=== PATIENT | male | born 1975 | race Caucasian/White ===

== ENCOUNTER 2020-03-17 11:59 | Inpatient (IN) | payer MEDICAID ==
[~2020-03-17] VITALS: Ht 177.8 cm; Wt 78.0 kg
[2020-03-17] MEDS ORDERED: PRINIVIL20 MG (12:21)
[2020-03-17] MEDS ORDERED: ZOLOFT50 MG PO (12:22)
[2020-03-17] MEDS ORDERED: BUPROPION XL300 MG PO (12:22)
[2020-03-17] MEDS ORDERED: BUSPAR10 MG (12:22)
--- NOTE | 2020-03-17 12:32 | NUR ---
CALLED POISON CONTROL- MONITOR FOR GI UPSET AND CHECK ALCOHOL LEVEL
[2020-03-17 13:25] LABS: HEMATOCRIT 43.3 % (42.0-54.0); HEMOGLOBIN 14.4 g/dL (13.5-17.5); MCH 31.4 pg (26.0-34.0); MCHC 33.3 g/dL (31.0-37.0); MCV 94.5 fL (80.0-100.0); MEAN PLATELET VOLUME 8.9 fL (7.4-10.4); PLATELET COUNT 331 10x3/uL (130-400); RBC 4.58 10x6/uL (4.20-6.10); RDW 13.1 % (11.5-14.5); WBC 10.2 10x3/uL (4.8-10.8)
[2020-03-17 13:37] LABS: CALC OSMOLALITY 269 mosm/kg (275-300); CALCIUM 9.4 mg/dL (8.5-10.1); CARBON DIOXIDE 28.6 mmol/L (21.0-32.0); CHLORIDE - SERUM 102 mmol/L (98-107); GLUCOSE 84 mg/dL (74-106); POTASSIUM - SERUM 4.1 mmol/L (3.5-5.1); SODIUM 136 mmol/L (136-145); UREA NITROGEN 11 mg/dL (7-18); eGFR NON AFRICAN AMERICAN 87 mL/min (90-120)
[2020-03-17 13:38] LABS: UDS - AMPHET NEGATIVE QUAL (NEGATIVE); UDS - BARB NEGATIVE QUAL (NEGATIVE); UDS - BENZO POSITIVE QUAL (NEGATIVE); UDS - COCAINE NEGATIVE QUAL (NEGATIVE); UDS - OPIATE NEGATIVE QUAL (NEGATIVE); UDS - PCP NEGATIVE QUAL (NEGATIVE); UDS - THC NEGATIVE QUAL (NEGATIVE)
[2020-03-17 13:41] LABS: ALBUMIN 4.3 g/dL (3.4-5.0); ALKALINE PHOSPHATASE 77 U/L (30-120); ALT (SGPT) 58 U/L (10-68); BILIRUBIN - TOTAL 0.25 mg/dL (0.2-1.3); MAGNESIUM - SERUM 1.9 mg/dL (1.8-2.4); PROTEIN - SERUM 8.4 g/dL (6.4-8.2)
[2020-03-17 13:43] LABS: BILIRUBIN NEGATIVE (NEGATIVE); KETONE NEGATIVE (NEGATIVE); NITRITE NEGATIVE (NEGATIVE); UROBILINOGEN NORMAL mg/dL (< 2)
[2020-03-17 14:28] LABS: ANISOCYTOSIS OCC; BASOPHILS 1 % (0-2); EOSINOPHILS 1 % (0-7); LYMPHOCYTES 36 % (15-50); MONOCYTES 11 % (2-11); NEUTROPHILS 48 % (40-80); PLATELET ESTIMATE NORMAL
--- NOTE | 2020-03-17 18:00 | NUR ---
TO PT ROOM, DOOR CLOSED UPON OPENING PT STANDING IN FRONT OF CRASH CART AND JUMPED BACK QUICKLY WITH HANDS BEHIND HIS BACK. WHEN I ASKED PT WHAT HE WAS DOING AND WHAT HE HID BEHIND HIS BACK HE REPLIED "YOU CAUGHT ME" PT HAD 2 BOXES OF EPINEPHRINE. TOOK BOXES FROM PT AND HE REPLIED "I HAD ALL MY POCKETS FULL AND I PUT THEM BACK" MOVED PT TO SECURED ROOMWITH DIRECT/CONTINUOUS OBS. PT BECAME VERY ANXIOUS AND AGGRESSIVE. PULLING ON GARAGE DOOR, PICKING UP THE CHAIR AND THROWING IT SECURITY CALLED AND STAFF AT BS. NEW ORDER FOR MED RCVD AND ADMIN
[2020-03-17 20:00] VITALS: BP 101/73
--- NOTE | 2020-03-17 20:00 | NUR ---
RESTING SUPINE WITH SNORING RESP. AROUSES EASILY AND STATES "I'M DOING FINE. I WAS SLEEPING GOOD" SKIN W/D/P. VSS
--- NOTE | 2020-03-17 21:06 | NUR ---
BS REPORT TO JAIDEN DUMAS
--- NOTE | 2020-03-17 23:29 | NUR ---
PT RESTING IN RECLINER, RESPIRATIONS APPEAR EVEN AND NON LABORED. WILL CONTINUE TO MONITOR.
[2020-03-18 03:40] VITALS: BP 116/74
--- NOTE | 2020-03-18 03:40 | NUR ---
RESTING WITH EYES CLOSED, SUPINE POSITION IN BED. NO SIGNS DISTRESS NOTED. VSS. WILL CONTINUE TO MONITOR.
--- NOTE | 2020-03-18 05:38 | NUR ---
CALLED FOR PSYCH SCREENER AT THIS TIME.
--- NOTE | 2020-03-18 06:10 | NUR ---
SPOKE WITH [facility] AND FAXED PT'S CHART.
--- NOTE | 2020-03-18 06:17 | NUR ---
SPOKE WITH NAVARRO AT [facility] AND FAXED PT'S CHART.
--- NOTE | 2020-03-18 06:38 | NUR ---
DR SPANN NOTIFIED AND REVIEWED PT's BEHAVIOR AND ASSESSMENT RESULTS. PT ISS A LOW RISK PER DR SPANN. DR SPANN STATED TO GIVE RESOURCES TO PT AT TIME OF DISCHARGE. NO FURTHER ORDERS AT THIS TIME. RESOURCES REVIEWED WITH PATIENT AND HE VERBALIZED UNDERSTANDING.
--- NOTE | 2020-03-18 06:42 | NUR ---
ICE WATER PROVIDED AT THIS TIME.
--- NOTE | 2020-03-18 07:20 | NUR ---
ASSUMED CARE OF PT. RESTING IN BED. A/A/OX4, DENIES C/O. SKIN W/D/P. RESP EVEN/UNLABORED. NAD NOTED .VSS
--- NOTE | 2020-03-18 07:21 | NUR ---
REPORT TO JAIDEN MCNAIR
[2020-03-18 07:30] VITALS: BP 110/76
--- NOTE | 2020-03-18 08:25 | NUR ---
NASAL SWAB COLLECTED, LABELED AT BS AND SENT TO LAB
[2020-03-18 09:15] VITALS: BP 118/76
--- NOTE | 2020-03-18 09:15 | NUR ---
RESTING IN BED WITH EYES CLOSED, AROUSES EASILY. NO C/O RTNS TO REST EASILY. VSS
--- NOTE | 2020-03-18 10:55 | NUR ---
CALLED [facility], SPOKE WITH ANDRES, INTAKE NURSE. REPORTS "NO CAPABILITY TO CARE FOR THIS PT"
--- NOTE | 2020-03-18 11:08 | NUR ---
CALLED [facility], SPOKE WITH JAIDEN DE LOS SANTOS. PT INFO GIVEN AND REQUESTED INFO FAXED TO PT
--- NOTE | 2020-03-18 11:31 | NUR ---
MAGALI MAHAJAN [facility] CALLED BACK, UNABLE TO ACCEPT "WE DON'T HAVE BEDS"
--- NOTE | 2020-03-18 11:50 | NUR ---
CALLED [facility] SPOKE WITH MILE, INFO PT INFO GIVEN AND INFO FAXED PER REQUEST
--- NOTE | 2020-03-18 12:36 | NUR ---
RCVD TC FROM LAB= COVID POSITIVE
[2020-03-18 13:00] VITALS: BP 114/72
--- NOTE | 2020-03-18 13:00 | NUR ---
SITTING UP ON SIDE OF BED EATING SANDWICH. CALM/COOP. VSS
--- NOTE | 2020-03-18 17:23 | NUR ---
PER DR. SPANN PT IS IN A SAFE ROOM AND SECURE. PT CAN BE MONITORED BY [facility] DUE TO COVID RESULTS.
--- NOTE | 2020-03-18 18:54 | NUR ---
REPORT TO JAIDEN SILVER
--- NOTE | 2020-03-18 19:00 | NUR ---
PT RESTING EYES CLOSED RESP EVEN AND UNLABORED WILL CONT TO MONITOR
--- NOTE | 2020-03-18 21:30 | NUR ---
PT ALERT ORIENTED CALM AND COOPERATIVE AT THIS TIME. PT USING BATHROOM AT THIS TIME. SITTER AT BEDSIDE.
[2020-03-18 21:50] VITALS: BP 136/88
--- NOTE | 2020-03-19 | NUR ---
PT RESTING EYES CLOSED RESP EVEN AND UNLABORED. WILL CONT TO MONITOR. SITTER AT BEDSIDE.
--- NOTE | 2020-03-19 04:00 | NUR ---
PT RESTING EYES CLOSED RESP EVEN AND UNLABORED. WILL CONT TO MONITOR.
--- NOTE | 2020-03-19 06:00 | NUR ---
PT ALERT AND ORIENTED INFORMED WE WILL BE WAITING ON BREAKFAST. DENIES NEEDS. LABS DRAWN.
[2020-03-19 06:12] VITALS: BP 149/76
[2020-03-19 06:17] LABS: BASOPHILS 0.7 % (0-2); HEMATOCRIT 44.9 % (42.0-54.0); IMMATURE GRANULOCYTES 0.5 % (0-5); LYMPHOCYTES 38.9 % (15-50); MCH 31.3 pg (26.0-34.0); MCHC 33.4 g/dL (31.0-37.0); MCV 93.7 fL (80.0-100.0); MEAN PLATELET VOLUME 8.6 fL (7.4-10.4); MONOCYTES 12.1 % (2-11); NEUTROPHILS 42.8 % (40-80); PLATELET COUNT 284 10x3/uL (130-400); RBC 4.79 10x6/uL (4.20-6.10); RDW 13.1 % (11.5-14.5); WBC 8.3 10x3/uL (4.8-10.8)
[2020-03-19 06:49] LABS: ANION GAP 13.4 mmol/L (8-16); BILIRUBIN - TOTAL 0.55 mg/dL (0.2-1.3); CALCIUM 9.7 mg/dL (8.5-10.1); CARBON DIOXIDE 29.2 mmol/L (21.0-32.0); CREATININE - SERUM 1.2 mg/dL (0.6-1.3); POTASSIUM - SERUM 4.6 mmol/L (3.5-5.1); PROTEIN - SERUM 7.8 g/dL (6.4-8.2)
[2020-03-19 10:00] VITALS: BP 134/73
--- NOTE | 2020-03-19 10:00 | NUR ---
PATIENT RESTING IN ROOM, NO COMPLAINTS OR REQUEST AT THIS TIME.
[2020-03-19 14:00] VITALS: BP 112/73
--- NOTE | 2020-03-19 14:00 | NUR ---
PATIENT RESTING WITH EYES CLOSED, AROUSES TO A/O X 3 WITH VERBAL STIMULAS.
--- NOTE | 2020-03-19 15:38 | CN ---
PATIENT NAME:STALIN FERNANDEZ MEDICAL RECORD: [id number] : 79 [facility] ADMIT DATE: 03/18/20 ACCOUNT: [id number] CONSULTING PHYSICIAN: RUKHSANA SPANN MD REFERRING PHYSICIAN: DOV JOSE MD DATE OF CONSULTATION: 03/18/2020 IDENTIFYING DATA: The patient is 44 years old and he is admitted to the hospital on a voluntary basis. CHIEF COMPLAINT: Overdose. HISTORY OF PRESENT ILLNESS: The patient took a 32 ounce bottle of hand kindergarten aide and drank it. He states that he did not do this for the purpose of getting high or drunk. He did it to kill himself. He currently is a patient at the [facility] and was admitted to that program for drug and alcohol abuse after having a stay at the [facility] because of suicidal ideations. He currently is awake, alert and reporting numerous depressive symptoms. He is estranged from his family. He will have nothing to do with them because of his history of drug and alcohol abuse and he does have a history of trying to hurt himself in the past. His drug history includes alcohol and methamphetamine use. Unfortunately, he was tested for COVID and is positive. He was scheduled to be sent to a psychiatric facility from the Emergency Department, but that cannot happen because of the positive COVID test. ASSESSMENT: Major depression. PLAN: The patient is currently admitted to the medical unit. It is not because of the COVID symptoms, he is actually asymptomatic with that and it was just discovered as a routine test. He is having depressive symptoms and suicidal thoughts and does need inpatient psychiatric care at this time. Unfortunately, no psychiatric inpatient unit can take him because he is COVID positive. At this point, I am going to treat him with antidepressant medicines, keep him with a sitter and we will attempt to relieve his mood symptoms in this manner. TRANSINT:[id number] Voice Confirmation ID: [id number] DOCUMENT ID: [id number] RUKHSANA SPANN MD at 1538 CC: [id number] DICTATION DATE: 03/18/20 1539 STONE POLISHER: 03/18/20 [address] [place] [address]
--- NOTE | 2020-03-19 19:00 | NUR ---
PT UP TO BATHROOM PT DENIES NEEDS AT THIS TIME.
[2020-03-19 19:35] VITALS: BP 136/77
[2020-03-20] VITALS: BP 127/74
--- NOTE | 2020-03-20 | NUR ---
PT RESTING EYES CLOSED RESP EVEN AND UNLABORED.
--- NOTE | 2020-03-20 03:39 | NUR ---
PT LYING ON STRECHER EYES CLOSED RESP EVEN AND UNLABORED. WILL CONT. TO MONITOR
[2020-03-20 06:06] LABS: EOSINOPHILS 4.9 % (0-7); HEMATOCRIT 43.9 % (42.0-54.0); HEMOGLOBIN 14.5 g/dL (13.5-17.5); IMMATURE GRANULOCYTES 0.3 % (0-5); MCH 31.1 pg (26.0-34.0); MCV 94.2 fL (80.0-100.0); MEAN PLATELET VOLUME 8.9 fL (7.4-10.4); MONOCYTES 9.4 % (2-11); NEUTROPHILS 42.4 % (40-80); PLATELET COUNT 278 10x3/uL (130-400); RBC 4.66 10x6/uL (4.20-6.10); RDW 13.1 % (11.5-14.5); WBC 7.4 10x3/uL (4.8-10.8)
[2020-03-20 06:24] LABS: ALBUMIN 3.8 g/dL (3.4-5.0); ALKALINE PHOSPHATASE 78 U/L (30-120); ALT (SGPT) 48 U/L (10-68); BILIRUBIN - TOTAL 0.26 mg/dL (0.2-1.3); CALC OSMOLALITY 277 mosm/kg (275-300); CALCIUM 9.4 mg/dL (8.5-10.1); CARBON DIOXIDE 29.5 mmol/L (21.0-32.0); CHLORIDE - SERUM 103 mmol/L (98-107); CREATININE - SERUM 1.1 mg/dL (0.6-1.3); GLUCOSE 89 mg/dL (74-106); POTASSIUM - SERUM 4.8 mmol/L (3.5-5.1); PROTEIN - SERUM 7.4 g/dL (6.4-8.2); SODIUM 138 mmol/L (136-145); UREA NITROGEN 21 mg/dL (7-18); eGFR NON AFRICAN AMERICAN 78 mL/min (90-120)
[2020-03-20 06:30] VITALS: BP 128/80
--- NOTE | 2020-03-20 07:00 | NUR ---
REPORT RECEIVED FROM PM RN, NO CHANGE IN PATIENT STATUS.
[2020-03-20 10:30] VITALS: BP 132/89
--- NOTE | 2020-03-20 10:30 | NUR ---
NO CHANGES IN PATIENT STATUS
--- NOTE | 2020-03-20 13:38 | NUR ---
PT IS CALM COOPERATIVE. PT IS IN SAFE ROOM. SITTER PRESENT.
[2020-03-20 14:30] VITALS: BP 133/94
--- NOTE | 2020-03-20 14:30 | NUR ---
PATIENT RESTING WITH EYES CLOSED, AROUSES WITH VERBAL STIMULAS
[2020-03-20 18:30] VITALS: BP 117/78
[2020-03-20 19:30] VITALS: BP 135/79
--- NOTE | 2020-03-20 19:30 | NUR ---
REPORT FROM SAUL HWANG PT RESTING EYES CLOSED RESP EVEN AND UNLABORED.
--- NOTE | 2020-03-20 20:30 | NUR ---
PT RESTING EYES CLOSED RESP EVEN AND UNLABORED. WILL CONT TO MONITOR. SITTER AT BEDSIDE.
--- NOTE | 2020-03-20 21:48 | NUR ---
PT UP TO BATHROOM AT THIS TIME DENIES NEEDS. SITTER AT BEDSIDE.
[2020-03-21] VITALS: BP 133/73
--- NOTE | 2020-03-21 | NUR ---
PT RESTING EYES CLOSED RESP EVEN AND UNLABORED. WILL CONTINUE TO MONITOR
--- NOTE | 2020-03-21 02:52 | NUR ---
PT UP TO BATHROOM GIVEN ICE CREAM AND COFFEE. DENIES NEEDS.
--- NOTE | 2020-03-21 03:30 | NUR ---
PT TAKEN TO [facility] ROOM TO SHOWER. SECURITY AT BEDSIDE. PT IS CALM AND COOPERATIVE.
[2020-03-21 03:38] VITALS: BP 142/71
[2020-03-21 04:35] LABS: BASOPHILS 0.9 % (0-2); EOSINOPHILS 5.2 % (0-7); HEMATOCRIT 41.7 % (42.0-54.0); HEMOGLOBIN 13.5 g/dL (13.5-17.5); IMMATURE GRANULOCYTES 0.3 % (0-5); LYMPHOCYTES 43.5 % (15-50); MCH 30.4 pg (26.0-34.0); MCHC 32.4 g/dL (31.0-37.0); MCV 93.9 fL (80.0-100.0); MEAN PLATELET VOLUME 8.9 fL (7.4-10.4); MONOCYTES 7.2 % (2-11); NEUTROPHILS 42.9 % (40-80); PLATELET COUNT 244 10x3/uL (130-400); RBC 4.44 10x6/uL (4.20-6.10); RDW 12.7 % (11.5-14.5); WBC 7.9 10x3/uL (4.8-10.8)
[2020-03-21 04:47] LABS: ALBUMIN 3.5 g/dL (3.4-5.0); ALKALINE PHOSPHATASE 88 U/L (30-120); ALT (SGPT) 42 U/L (10-68); BILIRUBIN - TOTAL 0.14 mg/dL (0.2-1.3); CALC OSMOLALITY 276 mosm/kg (275-300); CARBON DIOXIDE 27.7 mmol/L (21.0-32.0); CHLORIDE - SERUM 102 mmol/L (98-107); CREATININE - SERUM 1.1 mg/dL (0.6-1.3); GLUCOSE 108 mg/dL (74-106); MAGNESIUM - SERUM 1.9 mg/dL (1.8-2.4); PHOSPHOROUS 3.4 mg/dL (2.5-4.9); POTASSIUM - SERUM 4.3 mmol/L (3.5-5.1); PROTEIN - SERUM 7.2 g/dL (6.4-8.2); SODIUM 137 mmol/L (136-145); UREA NITROGEN 17 mg/dL (7-18); eGFR NON AFRICAN AMERICAN 78 mL/min (90-120)
--- NOTE | 2020-03-21 09:20 | NUR ---
[facility] DENIED DUE TO CAPABILITY
[2020-03-21 10:42] VITALS: BP 136/72
--- NOTE | 2020-03-21 10:42 | NUR ---
PT UP IN ROOM, WATCHING TV, STATES HE FEELS GOOD TODAY.
[2020-03-21 13:49] VITALS: Ht 177.8 cm; Wt 78.0 kg
[2020-03-21 14:32] VITALS: BP 136/69
--- NOTE | 2020-03-21 14:40 | NUR ---
[facility] STILL TRYING TO PLACE PT. PT WATCHING TV, VERY CALM NO COMPLAINTS VOICED.
--- NOTE | 2020-03-21 18:07 | NUR ---
PT WATCHING TV, NO COMPLAINTS VOICED. VITAL SIGNS STABLE.
[2020-03-21 18:08] VITALS: BP 146/86
--- NOTE | 2020-03-21 19:45 | NUR ---
PT RESTING WATCHING TV. SITTER WITHIN ARMS REACH.
--- NOTE | 2020-03-21 21:00 | NUR ---
PT GIVEN NIGHT TIME MEDS. CON'T TO DO WELL.
--- NOTE | 2020-03-21 21:21 | NUR ---
SPOKE TO [facility]ER CENTER. STATES HAS BEEN ON THE PHONE WITH PSYCH FACILITIES AND WAS INFORMED PATIENT WOULD NEED A SECOND NEGATIVE COVID SWAB.
--- NOTE | 2020-03-21 21:50 | NUR ---
PT RESTING IN BED.
--- NOTE | 2020-03-22 01:45 | NUR ---
RESTING QUIETLY WITH EYES CLOSED.
--- NOTE | 2020-03-22 05:55 | NUR ---
PT RESTING QUIETLY WITH EYES CLOSED. HAS RESTED WELL THIS SHIFT.
--- NOTE | 2020-03-22 06:27 | NUR ---
COVID SWAB COLLECTED AND SENT TO LAB.
[2020-03-22 07:14] LABS: BASOPHILS 1.5 % (0-2); EOSINOPHILS 5.5 % (0-7); HEMATOCRIT 43.4 % (42.0-54.0); HEMOGLOBIN 14.2 g/dL (13.5-17.5); IMMATURE GRANULOCYTES 0.5 % (0-5); LYMPHOCYTES 43.3 % (15-50); MCH 30.8 pg (26.0-34.0); MCHC 32.7 g/dL (31.0-37.0); MCV 94.1 fL (80.0-100.0); MEAN PLATELET VOLUME 9.1 fL (7.4-10.4); MONOCYTES 8.4 % (2-11); NEUTROPHILS 40.8 % (40-80); PLATELET COUNT 280 10x3/uL (130-400); RBC 4.61 10x6/uL (4.20-6.10); RDW 12.7 % (11.5-14.5); WBC 6.2 10x3/uL (4.8-10.8)
[2020-03-22 07:19] LABS: ALBUMIN 3.9 g/dL (3.4-5.0); ALKALINE PHOSPHATASE 78 U/L (30-120); ALT (SGPT) 42 U/L (10-68); CALC OSMOLALITY 271 mosm/kg (275-300); CALCIUM 9.3 mg/dL (8.5-10.1); CARBON DIOXIDE 30.6 mmol/L (21.0-32.0); CHLORIDE - SERUM 101 mmol/L (98-107); GLUCOSE 82 mg/dL (74-106); MAGNESIUM - SERUM 1.9 mg/dL (1.8-2.4); PHOSPHOROUS 3.5 mg/dL (2.5-4.9); POTASSIUM - SERUM 4.3 mmol/L (3.5-5.1); SODIUM 137 mmol/L (136-145); UREA NITROGEN 11 mg/dL (7-18); eGFR NON AFRICAN AMERICAN 87 mL/min (90-120)
--- NOTE | 2020-03-22 07:30 | NUR ---
PT GIVEN BREAKFAST TRAY
--- NOTE | 2020-03-22 13:38 | NUR ---
PT STATES HE IS NOT SI, NOT BEEN FOR 3 DAYS HE STATES. DID CATCH PT AT HOUSE KEEPINGS CART GRABBING AT THE HAND SOCIAL MEDIA COORDINATOR, PLACED SOCIAL MEDIA COORDINATOR AT NURSES STATION SITTER REMAINS WITH PT. HE IS LAUGHING STATES HE WAS JUST KIDDING. WAITING ON PTS RESULTS OF LAST COVID TEST.
--- NOTE | 2020-03-22 18:00 | NUR ---
PT IS COVID NEGATIVE
--- NOTE | 2020-03-22 18:51 | NUR ---
TALKED TO DR. JOSE ABOUT PT HAVING A NEGATIVE COVID AND NOT BEING SI FOR THE PAST 3 DAYS. HE STATES WE NEED TO CALL DR. SPANN TO HAVE PT CLEAED. CALL OUT TO DR. SPANN
--- NOTE | 2020-03-22 19:45 | NUR ---
PT STANDING IN HALLWAY. REDIRECTED TO ROOM.
--- NOTE | 2020-03-22 22:43 | NUR ---
PT STATES NEEDS HIS NIGHT TIME MEDS. ALSO C/O HEADACHE.
--- NOTE | 2020-03-23 00:08 | NUR ---
RESTING QUIETLY WITH EYES CLOSED. NO DISTRESS NOTED.
--- NOTE | 2020-03-23 07:49 | NUR ---
REPORT RECEIVED FROM PM RN, PATIENT SITTING ON SIDE OF BED, CALM, NO COMPLAINTS AT THIS TIME.
[2020-03-23 08:53] LABS: BASOPHILS 1.1 % (0-2); EOSINOPHILS 5.5 % (0-7); HEMATOCRIT 42.3 % (42.0-54.0); IMMATURE GRANULOCYTES 0.5 % (0-5); LYMPHOCYTES 42.3 % (15-50); MCH 31.1 pg (26.0-34.0); MCHC 33.1 g/dL (31.0-37.0); MEAN PLATELET VOLUME 9.1 fL (7.4-10.4); MONOCYTES 8.1 % (2-11); NEUTROPHILS 42.5 % (40-80); PLATELET COUNT 256 10x3/uL (130-400); RDW 12.5 % (11.5-14.5); WBC 6.2 10x3/uL (4.8-10.8)
[2020-03-23 09:07] LABS: ALBUMIN 3.9 g/dL (3.4-5.0); ALKALINE PHOSPHATASE 81 U/L (30-120); ALT (SGPT) 42 U/L (10-68); BILIRUBIN - TOTAL 0.28 mg/dL (0.2-1.3); CALC OSMOLALITY 275 mosm/kg (275-300); CALCIUM 9.6 mg/dL (8.5-10.1); CARBON DIOXIDE 32.3 mmol/L (21.0-32.0); CHLORIDE - SERUM 102 mmol/L (98-107); CREATININE - SERUM 1.1 mg/dL (0.6-1.3); GLUCOSE 120 mg/dL (74-106); MAGNESIUM - SERUM 1.9 mg/dL (1.8-2.4); PHOSPHOROUS 4.2 mg/dL (2.5-4.9); POTASSIUM - SERUM 4.2 mmol/L (3.5-5.1); PROTEIN - SERUM 7.9 g/dL (6.4-8.2); SODIUM 137 mmol/L (136-145); eGFR NON AFRICAN AMERICAN 78 mL/min (90-120)
[2020-03-23 09:08] LABS: UREA NITROGEN 14 mg/dL (7-18)
[2020-03-23 11:00] VITALS: BP 118/82
--- NOTE | 2020-03-23 11:00 | NUR ---
NO CHANGES IN PT STATUS.
[2020-03-23] MEDS ORDERED: NICODERM CQ1 EAC2 TRANSDERM (13:30)
[2020-03-23] MEDS ORDERED: EFFEXOR37.5 MG PO (13:30)
--- NOTE | 2020-03-23 13:45 | NUR ---
SAUL RN CALLED THIS NURSE REGARDING DR. SPANN'S NOTE. THIS NURSE SPOKE WITH DR. SPANN REGARDING NOTE. DR. SPANN STATED " I JUST DICTATED NOTE,IT SHOULD BE AVAILABLE TO VIEW." DR. SPANN REPORTED TO THIS NURSE PT IS CLEARED MENTALLY AT THIS TIME.
[2020-03-23 15:57] VITALS: BP 122/83
--- NOTE | 2020-03-23 16:33 | NUR ---
PATIENT OK TO D/C PER BARRIE PAZ IN [facility]. ALSO OK TO D/C PER KINA SMALLWOOD FOR DR. JOSE, NO MENTAL HEALTH ISSUES PER DR. SPANN.
[2020-03-23 16:35] VITALS: BP 124/87
--- NOTE | 2020-03-24 11:31 | PN ---
PATIENT:STALIN FERNANDEZ MEDICAL RECORD: [id number] LOCATION[facility] ADMISSION DATE: 03/18/20 PROGRESS NOTE DATE OF SERVICE: 03/23/2020 SUBJECTIVE: The patient's case was discussed with staff. He has no new complaint. OBJECTIVE: The patient is fully oriented, has a euthymic mood and no thoughts of harming himself or others. His thought processes are logical and goal directed. He has no psychotic symptoms. His explanation about drinking the hand security tester is not very convincing or understandable, so I do not think I have a good handle on what happened, but currently he is not dangerous. ASSESSMENT: No change in diagnoses. PLAN: The patient is not acutely dangerous to himself or others. He does not want to be hospitalized for psychiatric or substance abuse reasons. At this time, he does not meet criteria for an involuntary commitment. [facility] may be [facility] to the [facility] when he is stable from both a medical and infection control standpoint, but at this point, he does not need a sitter and there is no necessity for ongoing psychiatric care. TRANSINT:[id number] Voice Confirmation ID: [id number] DOCUMENT ID: [id number] RUKHSANA SPANN MD at 1131 CC: [id number] DICTATION DATE: 03/23/20 1323 PAINTLESS DENT REPAIR TECHNICIAN: 03/23/20 2218 DIS IN 03/23/20 [facility] [address] [place] [address]
== END 2020-03-23 16:33 | disposition home or self-care (01) | DRG 917 ==
LOC: D.ER 11:59 → D.EDHOLD 03-18 12:33 → D.ER 03-18 15:04 → D.EDHOLD 03-20 11:15
PROVIDERS: Emergency Medicine; Family Medicine; ADMIT Family Medicine Adult Medicine; ATTEND Family Medicine Adult Medicine
DX: T49.0X2A Poisoning by local antifungal, anti-infective and anti-inflammatory drugs, intentional self-harm, initial encounter (principal); U07.1 COVID-19; F10.229 Alcohol dependence with intoxication, unspecified; Y90.7 Blood alcohol level of 200-239 mg/100 ml; F41.9 Anxiety disorder, unspecified; F32.9 Major depressive disorder, single episode, unspecified; I10 Essential (primary) hypertension

== ENCOUNTER 2020-03-26 12:23 | Emergency (ER) | payer MEDICAID ==
[~2020-03-26] VITALS: Ht 177.8 cm; Wt 77.3 kg
[~2020-03-26 12:23] MED LIST: BUPROPION XL300 MG PO; BUSPAR10 MG; EFFEXOR37.5 MG PO; NICODERM CQ1 EAC2 TRANSDERM; PRINIVIL20 MG; ZOLOFT50 MG PO
[2020-03-26 12:30] VITALS: Ht 177.8 cm; Wt 77.3 kg
[2020-03-26 13:22] LABS: BASOPHILS 0.5 % (0-2); EOSINOPHILS 1.8 % (0-7); HEMOGLOBIN 12.8 g/dL (13.5-17.5); IMMATURE GRANULOCYTES 0.2 % (0-5); LYMPHOCYTES 42.1 % (15-50); MCH 31.2 pg (26.0-34.0); MCHC 33.7 g/dL (31.0-37.0); MCV 92.7 fL (80.0-100.0); MEAN PLATELET VOLUME 8.8 fL (7.4-10.4); MONOCYTES 8.3 % (2-11); NEUTROPHILS 47.1 % (40-80); PLATELET COUNT 300 10x3/uL (130-400); RDW 13.2 % (11.5-14.5); WBC 9.6 10x3/uL (4.8-10.8)
[2020-03-26 13:26] LABS: CALC OSMOLALITY 283 mosm/kg (275-300); CALCIUM 8.8 mg/dL (8.5-10.1); CARBON DIOXIDE 27.7 mmol/L (21.0-32.0); CHLORIDE - SERUM 106 mmol/L (98-107); CREATININE - SERUM 1.1 mg/dL (0.6-1.3); GLUCOSE 103 mg/dL (74-106); POTASSIUM - SERUM 3.5 mmol/L (3.5-5.1); SODIUM 143 mmol/L (136-145); UREA NITROGEN 10 mg/dL (7-18); eGFR NON AFRICAN AMERICAN 78 mL/min (90-120)
[2020-03-26 13:34] LABS: ALKALINE PHOSPHATASE 98 U/L (30-120); ALT (SGPT) 44 U/L (10-68); BILIRUBIN - TOTAL 0.33 mg/dL (0.2-1.3); PROTEIN - SERUM 7.2 g/dL (6.4-8.2)
[2020-03-26 15:13] LABS: BILIRUBIN NEGATIVE (NEGATIVE); KETONE NEGATIVE (NEGATIVE); NITRITE NEGATIVE (NEGATIVE); UROBILINOGEN NORMAL mg/dL (< 2)
[2020-03-26 15:21] LABS: UDS - AMPHET NEGATIVE QUAL (NEGATIVE); UDS - BARB NEGATIVE QUAL (NEGATIVE); UDS - BENZO POSITIVE QUAL (NEGATIVE); UDS - COCAINE NEGATIVE QUAL (NEGATIVE); UDS - OPIATE NEGATIVE QUAL (NEGATIVE); UDS - PCP NEGATIVE QUAL (NEGATIVE); UDS - THC NEGATIVE QUAL (NEGATIVE)
[2020-03-27 03:55] VITALS: BP 123/73
== END 2020-03-27 03:55 ==
LOC: D.ER 12:23
PROVIDERS: Family Medicine
DX: R45.851 Suicidal ideations (principal); F10.129 Alcohol abuse with intoxication, unspecified; Y90.8 Blood alcohol level of 240 mg/100 ml or more

== ENCOUNTER 2020-04-04 18:23 | Emergency (ER) | payer MEDICAID ==
[~2020-04-04] VITALS: Ht 177.8 cm; Wt 77.3 kg
[2020-04-04 18:42] VITALS: Ht 177.8 cm; Wt 77.3 kg
[2020-04-04 19:12] LABS: BASOPHILS 0.8 % (0-2); EOSINOPHILS 3.3 % (0-7); HEMATOCRIT 40.7 % (42.0-54.0); HEMOGLOBIN 13.5 g/dL (13.5-17.5); IMMATURE GRANULOCYTES 0.1 % (0-5); LYMPHOCYTES 48.9 % (15-50); MCH 31.1 pg (26.0-34.0); MCHC 33.2 g/dL (31.0-37.0); MCV 93.8 fL (80.0-100.0); MEAN PLATELET VOLUME 8.6 fL (7.4-10.4); MONOCYTES 13.4 % (2-11); NEUTROPHILS 33.5 % (40-80); PLATELET COUNT 345 10x3/uL (130-400); RBC 4.34 10x6/uL (4.20-6.10); RDW 13.1 % (11.5-14.5); WBC 10.6 10x3/uL (4.8-10.8)
[2020-04-04 19:32] LABS: CALC OSMOLALITY 282 mosm/kg (275-300); CARBON DIOXIDE 25.5 mmol/L (21.0-32.0); CHLORIDE - SERUM 100 mmol/L (98-107); CREATININE - SERUM 1.3 mg/dL (0.6-1.3); GLUCOSE 111 mg/dL (74-106); POTASSIUM - SERUM 3.9 mmol/L (3.5-5.1); SODIUM 140 mmol/L (136-145); UREA NITROGEN 21 mg/dL (7-18); eGFR NON AFRICAN AMERICAN 64 mL/min (90-120)
[2020-04-04 19:41] LABS: ALBUMIN 4.3 g/dL (3.4-5.0); ALKALINE PHOSPHATASE 83 U/L (30-120); ALT (SGPT) 49 U/L (10-68); AMYLASE - SERUM 88 U/L (25-115); BILIRUBIN - TOTAL 0.17 mg/dL (0.2-1.3); LIPASE 137 U/L (73-393); PROTEIN - SERUM 8.8 g/dL (6.4-8.2); TROPONIN-I < 0.017 ng/mL (0.000-0.060)
--- NOTE | 2020-04-05 12:50 | NUR ---
DR. SPANN NOTIFIED AND REVIEWED PT'S BEHAVIOR AND ASSESSMENT RESULTS. PT IS A LOW RISK PER DR. SPANN. DR. SPANN STATED TO GIVE RESOURCES TO PT AT TIME OF DISCHARGE. NO FURTHER ORDERS AT THIS TIME. RESOURCES REVIEWED WITH PT AND HE VERBALIZED UNDERSTANDING. PT DENIES SI AT THIS TIME.
[2020-04-05 15:26] VITALS: BP 142/86
== END 2020-04-05 15:27 | disposition home or self-care (01) ==
LOC: D.ER 18:23
PROVIDERS: Family Medicine
DX: F10.129 Alcohol abuse with intoxication, unspecified (principal); Y90.8 Blood alcohol level of 240 mg/100 ml or more; I10 Essential (primary) hypertension; Z72.0 Tobacco use; R19.7 Diarrhea, unspecified